=== PATIENT | male | born 1990 | race American Indian/Alaskan Native ===

== ENCOUNTER 2016-07-29 18:58 | Emergency (ER) | payer SELFPAY ==
[2016-07-29 19:06] VITALS: BP 118/71; PULSE 120; RESP 20; TEMP 98.8; O2SAT 98
[2016-07-29] MEDS ORDERED: Sodium Chloride 0.9% 1,000 ML IV STA (19:42)
[2016-07-29 20:16] LABS: BASO % 0.3 % (0.0-2.0); EOS % 0.1 % (0.0-4.0); HEMATOCRIT 42.1 % (35.0-51.0); LYMPH # 1.9 K/uL (1.0-4.3); LYMPH % 16.1 % (20.0-40.0); MEAN CELL VOLUME 92.8 fl (80.0-94.0); MEAN CORPUSCULAR HEMOGLOBIN 30.9 pg (27.0-31.0); MEAN CORPUSCULAR HGB CONC 33.3 g/dL (33.0-37.0); MEAN PLATELET VOLUME 9.3 fl (7.2-11.7); MONO # 0.7 K/uL (0.0-0.8); MONO % 5.9 % (0.0-10.0); NEUT % 77.6 % (50.0-75.0); RED CELL DISTRIBUTION WIDTH 13.5 % (11.5-14.5); WHITE BLOOD COUNT 11.6 K/uL (4.8-10.8)
[2016-07-29 20:24] LABS: ALB/GLOB RATIO 1.6 (1.0-2.1); ALCOHOL SERUM < 10 mg/dl (0-10); ALKALINE PHOSPHATASE 69 U/L (38-126); ALT/SGPT 28 U/L (21-72); AST/SGOT 30 U/L (17-59); BILIRUBIN,TOTAL 0.7 mg/dl (0.2-1.3); BLOOD UREA NITROGEN 10 mg/dl (9-20); CALCIUM 10.2 mg/dL (8.4-10.2); CARBON DIOXIDE 21 mmol/L (22-30); CHLORIDE 104 mmol/L (98-107); GFR AFRICAN-AMERICAN > 60; GLUCOSE,RANDOM 102 mg/dL (75-110); MAGNESIUM 2.7 MG/DL (1.6-2.3); PHOSPHOROUS 2.2 mg/dl (2.5-4.5); SODIUM 142 mmol/l (132-148); TOTAL PROTEIN 8.7 G/DL (6.3-8.2)
[2016-07-29] MEDS ORDERED: Bacitracin 500 Units/gm Oint Foilpak UD TOP ONE (21:08)
[2016-07-29] MEDS ORDERED: TDAP Vaccine 0.5 mL Syr IM ONE (21:08)
[2016-07-29] MEDS ORDERED: Alum-Mag Hydrox-Simethicone Susp (30 mL) PO STA (21:15)
--- NOTE | 2016-07-29 21:15 | ED PDOC ---
HPI: Seizure Time Seen by Provider: 07/29/16 19:28 Chief Complaint (Nursing): Seizure Chief Complaint (Provider): possible seizure History Per: Patient Recent Seizure Activity Began: Just Before Arrival Number Of Seizures: One Precipitating Factor(s): Decreased Sleep, Other (No PO intakce) Associated Symptoms: Injury As A Result Of Seizure Activity (RIGHT facial abrasions). 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 He has not eaten in 2 days and not slept well either. Admits that he is feeling depressed and at times having suicidal thoughts. After his admission for depression he no longer takes his medications because he does not like how they make him feel. He was working all day today (>85 degree heat and 100% humidity) delivering food. Currently c/o nausea. Past Medical History Reviewed: Historical Data, Nursing Documentation, Vital Signs Vital Signs: Last Vital Signs Temp 98.8 F 07/29/16 19:03 Pulse 120 H 07/29/16 19:03 Resp 20 07/29/16 19:03 BP 118/71 07/29/16 19:03 Pulse Ox 98 07/29/16 23:08 - Medical History PMH: Anxiety, Depression, Gastritis Denies: Diabetes, Hepatitis, HIV, HTN, Chronic Kidney Disease, Seizures, Sexually Transmitted Disease - Family History Family History: States: Unknown Family Hx - Immunization History Hx Tetanus Toxoid Vaccination: Yes - Home Medications Home Medications: Ambulatory Orders Medication Instructions Recorded FLUoxetine [Prozac] 10 mg PO DAILY #15 cap 11/21/15 OLANZapine [Zyprexa Zydis] 5 mg PO AMHS #30 odt 11/21/15 Famotidine [Pepcid] 20 mg PO BID #30 tab 02/07/16 Ondansetron [Zofran Odt] 4 mg PO Q8 PRN #10 odt 02/07/16 - Allergies Allergies/Adverse Reactions: Allergies Allergy/AdvReac Type Severity Reaction Status Date / Time No Known Allergies Allergy Verified 07/29/16 19:02 Review of Systems ROS Statement: Except As Marked, All Systems Reviewed And Found Negative (and as per HPI) Gastrointestinal: Positive for: Abdominal Pain Psych: Positive for: Anxiety, Depression, Suicidal ideation (thoughts) Physical Exam - Reviewed Nursing Documentation Reviewed: Yes Vital Signs Reviewed: Yes - Physical Exam Appears: Positive for: No Acute Distress (but tired appearing) Head Exam: Positive for: NORMOCEPHALIC (+multiple abrasions RIGHT cheek forehead chin with early contusions) Skin: Positive for: Warm, Dry Eye Exam: Positive for: EOMI, PERRL ENT: Negative for: Pharyngeal Erythema, Tonsillar Exudate Neck: Positive for: Painless ROM, Supple Cardiovascular/Chest: Positive for: Regular Rate, Rhythm. Negative for: Murmur Respiratory: Positive for: Normal Breath Sounds. Negative for: Wheezing Gastrointestinal/Abdominal: Positive for: Soft, Tenderness (epigastric mild) Back: Positive for: Normal Inspection. Negative for: Vertebral Tenderness Extremity: Positive for: Normal ROM. Negative for: Deformity Lymphatic: Negative for: Adenopathy Neurologic/Psych: Positive for: Alert, Oriented (x3), Mood/Affect (mildly anxious but tearful and depressed). Negative for: Motor/Sensory Deficits - Laboratory Results Result Diagrams: 07/29/16 20:05 07/29/16 20:05 - ECG ECG: Positive for: Interpreted By Me ECG Rhythm: Positive for: Normal QRS, Normal ST Segment, Sinus Rhythm O2 Sat by Pulse Oximetry: 98 Pulse Ox Interpretation: Normal - Progress ED Course And Treament: CLINICAL HISTORY: The patient is a 26 years male; Signs and symptoms; Other: Poss seizure 2016 7:42 PM TECHNIQUE: Axial computed tomography images of the head/brain without intravenous contrast. This CT exam was performed using one or more of the following dose reduction techniques: automated exposure control, adjustment of the mA and/or kV according to patient size, and/or use of iterative reconstruction technique. Coronal and sagittal reformatted images were created and reviewed. COMPARISON: No relevant prior studies available. FINDINGS: Brain: Streak artifact limits evaluation of the skull base. No evidence of acute intracranial hemorrhage. Correlate clinically.. No significant white matter disease. No edema. Ventricles: Unremarkable. No ventriculomegaly. Bones/joints: No displaced fracture. Soft tissues: Unremarkable. Sinuses: Unremarkable as visualized. No acute sinusitis. Mastoid air cells: Unremarkable as visualized. No mastoid effusion. IMPRESSION: Streak artifact limits evaluation of the skull base. No evidence of acute intracranial hemorrhage. Correlate clinically. Thank you for allowing us to participate in the care of your patient. Dictated and Authenticated by: Lee Mo MD 07/29/2016 9:02 PM Eastern Time ([place] & [place]) Labs c/w seizure. This is the patient's first time seizure, and there are multiple reversible factors that could have led to it, including poor nutrition , dehydration, and substance abuse. Pt medically stable for dc. However, he also demonstrates signs of depression and needs crisis eval. 10p Per CW pt stable for dc to f/u with [facility]. Disposition - Clinical Impression Clinical Impression: Dehydration, Simple seizure, Depressed Counseled Patient/Family Regarding: Studies Performed, Diagnosis, Need For Followup - Disposition Referrals: Fransico Boone MD [Staff Provider] - [facility] [Outside] [facility] [Outside] - 07/30/16 Disposition: Routine/Home Disposition Time: 22:00 Condition: IMPROVED Additional Instructions: REST AND DRINK PLENTY OF HYDRATING FLUIDS YOU MUST FOLLOW UP WITH YOUR DOCTOR OR CLINIC FOR FURTHER EVALUATION. FOLLOW UP WITH [facility]NA[facility] Instructions: Dehydration (ED), Depression (ED), New-Onset Seizure in Adults ( ED)
[2016-07-29] MEDS ORDERED: Alum-Mag Hydrox-Simethicone Susp (30 mL) ONE (21:29)
[2016-07-29] MEDS ORDERED: Bacitracin 500 Units/gm Oint Foilpak UD ONE (21:29)
--- NOTE | 2016-07-30 08:24 | CT ---
PROCEDURE: CT HEAD WITHOUT CONTRAST. HISTORY: seizure COMPARISON: None available. TECHNIQUE: Axial computed tomography images were obtained through the head/brain without intravenous contrast. Radiation dose: Total exam DLP = 928.24 mGy-cm. This CT exam was performed using one or more of the following dose reduction techniques: Automated exposure control, adjustment of the mA and/or kV according to patient size, and/or use of iterative reconstruction technique. FINDINGS: HEMORRHAGE: No intracranial hemorrhage. BRAIN: Kaplan-white matter differentiation is preserved. There is no mass, mass effect or abnormal extra-axial fluid collection. VENTRICLES: The ventricles are normal in size, shape and configuration. CALVARIUM: There is no calvarial fracture or extracranial soft tissue swelling. PARANASAL SINUSES: Predominantly clear. MASTOID AIR CELLS: Predominantly clear. OTHER FINDINGS: None. IMPRESSION: No acute intracranial abnormality. A preliminary report was provided by [facility].
--- NOTE | 2016-07-30 17:39 | CARD ---
APPROVED REPORT EKG Measurement Heart [id number] <Conclusion> Sinus arrhythmia
== END 2016-07-29 23:55 | disposition home or self-care (01) ==
LOC: H.ER 18:58
DX: R56.9 Unspecified convulsions (principal); E86.0 Dehydration; F32.9 Major depressive disorder, single episode, unspecified
CPT/HCPCS: 70450; 80053; 82550; 82948; 83605; 83735; 84100; 85025; 93005; 99284; G0480

== ENCOUNTER 2016-08-25 23:29 | Emergency (ER) | payer SELFPAY ==
[2016-08-25 23:42] VITALS: BP 127/77; PULSE 93; RESP 16; TEMP 98.9; O2SAT 100
--- NOTE | 2016-08-26 00:14 | ED PDOC ---
Lower Extremity Pain/Injury Time Seen by Provider: 08/25/16 23:41 Chief Complaint (Nursing): Lower Extremity Problem/Injury Additional Complaint(s): 26yo M with PMHx seizure x1 (pending Neuro FU) presents for right ankle pain. ~ 2PM pt landed on right foot after jumping while playing football. Denies any popping sound at time of incident. Denies any other person landing on foot, denies h/o trauma. First sat down after injury, then was able to amulate >4 steps bearing weight. At home, pt iced and applied comppression, no NSAIDs. Got to ED by cab d/t continued pain. PCP [facility] - Ankle/Foot Description Of Injury: Twisted Currently Unable To: Bear Weight Alleviating Factor(s): Ice Therapy, Elevation Past Medical History Reviewed: Historical Data, Nursing Documentation, Vital Signs Vital Signs: Last Vital Signs Temp 98.9 F 08/25/16 23:39 Pulse 93 H 08/25/16 23:39 Resp 16 08/25/16 23:39 BP 127/77 08/25/16 23:39 Pulse Ox 100 08/25/16 23:39 - Medical History PMH: Anxiety, Depression, Gastritis, Seizures Denies: Diabetes, Hepatitis, HIV, HTN, Chronic Kidney Disease, Sexually Transmitted Disease - Surgical History Surgical History: No Surg Hx - Family History Family History: States: Unknown Family Hx - Social History Current smoker - smoking cessation education provided: No Alcohol: None Drugs: Denies - Immunization History Hx Tetanus Toxoid Vaccination: Yes - Home Medications Home Medications: Ambulatory Orders Medication Instructions Recorded FLUoxetine [Prozac] 10 mg PO DAILY #15 cap 11/21/15 OLANZapine [Zyprexa Zydis] 5 mg PO AMHS #30 odt 11/21/15 Famotidine [Pepcid] 20 mg PO BID #30 tab 02/07/16 Ondansetron [Zofran Odt] 4 mg PO Q8 PRN #10 odt 02/07/16 - Allergies Allergies/Adverse Reactions: Allergies Allergy/AdvReac Type Severity Reaction Status Date / Time No Known Allergies Allergy Verified 08/25/16 23:38 Review of Systems ROS Statement: Except As Marked, All Systems Reviewed And Found Negative Musculoskeletal: Positive for: Foot Pain (right) Physical Exam - Reviewed Nursing Documentation Reviewed: Yes Vital Signs Reviewed: Yes - Physical Exam Appears: Positive for: Well, No Acute Distress Head Exam: Positive for: ATRAUMATIC, NORMAL INSPECTION Skin: Positive for: Warm, Dry Eye Exam: Positive for: Normal appearance, EOMI ENT: Negative for: Pharyngeal Erythema, Tonsillar Exudate Neck: Positive for: Normal, Supple Back: Positive for: Normal Inspection. Negative for: Vertebral Tenderness Extremity: Positive for: Tenderness, Swelling Neurologic/Psych: Positive for: Alert, Oriented - ECG O2 Sat by Pulse Oximetry: 100 Medical Decision Making Medical Decision Makin DDx ankle sprain, unlikely to be fx ibuprofen 600mg PO x1 right ankle XR 3 views Reassessment 0100 right ankle XR 3 views negative air cast, crutches d/c home, NSAIDs OTC FU PCP and podiatry [facility] Ankle Rules LATERAL/MEDIAL ANKLE VIEW(IMAGE): 1 - tenderness - Malleolar zone tenderness? Posterior edge or tip of lateral malleolus: Yes Posterior edge or tip of medial malleolus: No Inability to bear weight both immediately and in the ED: No - Midfoot zone tenderness? Base of 5th Metatarsal: No Navicular: No Inability to bear weight both immediately and in the ED: No Disposition - Clinical Impression Clinical Impression: Ankle sprain and strain - Disposition Referrals: [facility] [Outside] [facility] [Outside] Disposition Time: 01:29 Condition: STABLE Instructions: Ankle Sprain (ED)
--- NOTE | 2016-08-26 11:38 | RAD ---
PROCEDURE: Right Ankle Radiographs. HISTORY: right ankle sprain, r/o fx COMPARISON: None FINDINGS: BONES: Current study reveals no evidence of acute displaced fracture nor dislocation. Talar dome intact. No cortical destructive changes. JOINTS: Joint spaces preserved. Ankle mortise maintained. SOFT TISSUES: Minimal soft tissue swelling OTHER FINDINGS: None. IMPRESSION: No acute displaced fractures
== END 2016-08-26 01:09 | disposition home or self-care (01) ==
LOC: H.ER 23:29
DX: S93.401A Sprain of unspecified ligament of right ankle, initial encounter (principal); X50.9XXA Other and unspecified overexertion or strenuous movements or postures, initial encounter; Y92.321 Football field as the place of occurrence of the external cause; F41.9 Anxiety disorder, unspecified

== ENCOUNTER 2017-03-14 21:15 | Emergency (ER) | payer SELFPAY ==
[2017-03-14 21:28] VITALS: BP 124/73; PULSE 71; RESP 20; TEMP 97.7; O2SAT 97
[2017-03-14] MEDS ORDERED: Sodium Chloride 0.9% 1,000 ML IV STA (22:20)
--- NOTE | 2017-03-14 22:40 | ED PDOC ---
HPI: Psych/Substance Abuse Time Seen by Provider: 03/14/17 21:57 Chief Complaint (Nursing): Abdominal Pain Chief Complaint (Provider): Nausea and Vomiting History Per: Patient History/Exam Limitations: no limitations Onset/Duration Of Symptoms: Days (1 day ago) Current Symptoms Are (Timing): Still Present Additional Complaint(s): 26 y/o male presents to the ED complaining of nausea and vomiting, onset of 1 day ago. Patient reports getting into an argument with his mom yesterday, so he decided to drink alcohol for the remainder of the day and also continued to drink more alcohol today, but also took PCP. He denies any abdominal pain. Past Medical History Reviewed: Historical Data, Nursing Documentation, Vital Signs Vital Signs: Last Vital Signs Temp 97.7 F 03/14/17 21:23 Pulse 71 03/14/17 21:23 Resp 20 03/14/17 21:23 BP 124/73 03/14/17 21:23 Pulse Ox 97 03/14/17 21:23 - Medical History PMH: Anxiety, Depression, Gastritis, Seizures Denies: Diabetes, Hepatitis, HIV, HTN, Chronic Kidney Disease, Sexually Transmitted Disease - Surgical History Surgical History: No Surg Hx - Family History Family History: States: Unknown Family Hx - Social History Current smoker - smoking cessation education provided: No Ex-Smoker (has not smoked in the last 12 months): No Alcohol: > 2 Drinks/Day Drugs: Denies - Immunization History Hx Tetanus Toxoid Vaccination: Yes - Home Medications Home Medications: Ambulatory Orders Medication Instructions Recorded FLUoxetine [Prozac] 10 mg PO DAILY #15 cap 11/21/15 OLANZapine [Zyprexa Zydis] 5 mg PO AMHS #30 odt 11/21/15 Famotidine [Pepcid] 20 mg PO BID #30 tab 02/07/16 Ondansetron [Zofran Odt] 4 mg PO Q8 PRN #10 odt 02/07/16 - Allergies Allergies/Adverse Reactions: Allergies Allergy/AdvReac Type Severity Reaction Status Date / Time No Known Allergies Allergy Verified 03/14/17 21:23 Review of Systems ROS Statement: Except As Marked, All Systems Reviewed And Found Negative Constitutional: Negative for: Fever Gastrointestinal: Positive for: Nausea, Vomiting. Negative for: Abdominal Pain Physical Exam - Reviewed Nursing Documentation Reviewed: Yes Vital Signs Reviewed: Yes - Physical Exam Appears: Positive for: Well, Non-toxic, No Acute Distress Head Exam: Positive for: ATRAUMATIC, NORMAL INSPECTION, NORMOCEPHALIC Skin: Positive for: Normal Color, Warm, DRY Eye Exam: Positive for: EOMI, Normal appearance, PERRL ENT: Positive for: Normal ENT Inspection Neck: Positive for: Normal, Painless ROM Cardiovascular/Chest: Positive for: Regular Rate, Rhythm. Negative for: Murmur Respiratory: Positive for: Normal Breath Sounds. Negative for: Respiratory Distress Gastrointestinal/Abdominal: Positive for: Normal Exam, Bowel Sounds, Soft Back: Positive for: Normal Inspection Extremity: Positive for: Normal ROM. Negative for: Pedal Edema, Deformity Neurologic/Psych: Positive for: Alert, Oriented. Negative for: Motor/Sensory Deficits - Laboratory Results Result Diagrams: 03/14/17 23:05 03/14/17 23:05 - ECG O2 Sat by Pulse Oximetry: 97 (RA) Pulse Ox Interpretation: Normal Medical Decision Making Medical Decision Making: Time: --22:20 Impression: --Gastritis, Poly Substance Abuse Plan: --Alcohol Serum --Labs --Drug Screen, urine --Lipase --Ed Urine dip --IV fluids --Zofran 4mg IV --Urinalysis Reassess -- 00:00 Patient signed out to Dr. Castro pending PO challenge and crisis evaluation. Scribe Attestation: Documented by Eladio Zurita and Amalia Solorio acting as scribes for Zully Kunz MD. Provider Attestation: All medical record entries made by the Scribe were at my direction and personally dictated by me. I have reviewed the chart and agree that the record accurately reflects my personal performance of the history, physical exam, medical decision making, and the department course for this patient. I have also personally directed, reviewed, and agree with the discharge instructions and disposition. Disposition - Clinical Impression Clinical Impression: Polysubstance abuse - Patient ED Disposition Is Patient to be Admitted: Transfer of Care - Disposition Disposition: Transfer of Care Disposition Time: 00:00 Condition: FAIR Forms: [employer] (Swazi) Patient Signed Over To: Chance Castro
[2017-03-14 23:15] LABS: BASO % 0.1 % (0.0-2.0); HEMOGLOBIN 13.4 g/dL (12.0-18.0); LYMPH # 1.2 K/uL (1.0-4.3); MEAN CELL VOLUME 94.5 fl (80.0-94.0); MEAN CORPUSCULAR HEMOGLOBIN 31.1 pg (27.0-31.0); MEAN CORPUSCULAR HGB CONC 32.9 g/dL (33.0-37.0); MEAN PLATELET VOLUME 9.5 fl (7.2-11.7); MONO # 1.1 K/uL (0.0-0.8); MONO % 5.9 % (0.0-10.0); NEUT # 15.5 K/uL (1.8-7.0); NRBC % 0.1 % (0.0-0.0); PLATELET COUNT 190 K/uL (130-400); RBC 4.32 Mil/uL (4.40-5.90)
[2017-03-14 23:18] LABS: WHITE BLOOD COUNT 17.8 K/uL (4.8-10.8)
[2017-03-14 23:23] LABS: ALB/GLOB RATIO 1.4 (1.0-2.1); ALBUMIN 4.8 g/dL (3.5-5.0); ALT/SGPT 63 U/L (21-72); AST/SGOT 32 U/L (17-59); BLOOD UREA NITROGEN 16 mg/dl (9-20); CALCIUM 9.7 mg/dL (8.4-10.2); GFR AFRICAN-AMERICAN > 60; GFR NON-AFRICAN AMERICAN > 60; LIPASE 53 U/L (23-300)
[2017-03-15 00:31] LABS: URINE BILIRUBIN NEGATIVE (NEGATIVE); URINE BLOOD NEGATIVE (NEGATIVE); URINE CLARITY SLIGHTY-CLOUDY (Clear); URINE COLOR YELLOW (YELLOW); URINE GLUCOSE (UA) NEG (Normal); URINE LEUKOCYTE ESTERASE NEG Leu/uL (Negative); URINE NITRATE NEGATIVE (NEGATIVE); URINE PROTEIN NEGATIVE (NEGATIVE); URINE UROBILINOGEN 0.2-1.0 mg/dL (0.2-1.0)
[2017-03-15 00:36] LABS: LYMPHOCYTE 8 % (20-50); MONOCYTE 5 % (0-10); NEUTROPHIL 83 % (42-75); PLATELET ESTIMATE NORMAL (NORMAL); REACTIVE LYMPHOCYTES 4 % (0-0); TOTAL CELLS COUNTED 100
[2017-03-15 00:37] LABS: PLATELET CLUMPS PRESENT
[2017-03-15 00:40] LABS: SPHEROCYTES SLIGHT
[2017-03-15 00:53] LABS: BARBITURATES, UR NEGATIVE (NEGATIVE); BENZODIAZEPINES, UR NEGATIVE (NEGATIVE); OPIATES, UR NEGATIVE (NEGATIVE)
[2017-03-15 00:56] LABS: PHENCYCLIDINE, UR POSITIVE (NEGATIVE)
--- NOTE | 2017-03-15 01:21 | ED PDOC ---
- Laboratory Results Result Diagrams: 03/14/17 23:05 03/14/17 23:05 - ECG O2 Sat by Pulse Oximetry: 97 (RA) Medical Decision Making Medical Decision Makin:00 Patient signed out to me by Dr. Kunz pending PO challenge and crisis evaluation. 01:00 CBC shows elevated WBC count, and (+) PCP and cannabis. Crisis evaluated patient , diagnosis anxiety by Dr. Manzo. 2:20 Patient tolerated PO. Gave patient Rx for Zofran and advised to follow up with PMD in 2-3 days, or return to ED if symptoms worsen. Patient is cleared for discharge. Clinical Impression: Anxiety, Vomiting, PCP Abuse Scribe Attestation: Documented by Amalia Solorio, acting as a scribe for Chance Castro MD. Provider Scribe Attestation: All medical record entries made by the Scribe were at my direction and personally dictated by me. I have reviewed the chart and agree that the record accurately reflects my personal performance of the history, physical exam, medical decision making, and the department course for this patient. I have also personally directed, reviewed, and agree with the discharge instructions and disposition Disposition Doctor Will See Patient In The: Office Counseled Patient/Family Regarding: Studies Performed, Diagnosis, Need For Followup - Clinical Impression Clinical Impression: Anxiety, Vomiting, PCP (phencyclidine) abuse - POA Present On Arrival: None - Disposition Referrals: [facility] [Outside] Disposition: Routine/Home Disposition Time: 02:20 Condition: GOOD Additional Instructions: Return for worsening. Follow up with your PCP in 2-3 days. Prescriptions: Ondansetron ODT [Zofran ODT] 4 mg PO Q8 PRN #12 odt PRN Reason: Nausea/Vomiting Instructions: Acute Nausea and Vomiting (ED), Polysubstance Abuse (ED)
== END 2017-03-15 02:40 | disposition home or self-care (01) ==
LOC: H.ER 21:15
DX: K29.70 Gastritis, unspecified, without bleeding (principal); F19.10 Other psychoactive substance abuse, uncomplicated; F32.9 Major depressive disorder, single episode, unspecified; F41.9 Anxiety disorder, unspecified
CPT/HCPCS: 80053; 81003; 83690; 85025; 99285; G0480; J2405; J7040